=== PATIENT | male | born 1960 | race African-American/Black ===

== ENCOUNTER 2024-09-05 11:50 | Inpatient (IN) | payer MEDICARE, MEDICAID ==
[~2024-09-05] VITALS: Ht 165.1 cm; Wt 52.2 kg
[~2024-09-05 11:50] MED LIST: BENADRYL; RISPERDAL; ZOLOFT
[2024-09-05 11:53] VITALS: O2SAT 98
[2024-09-05] MEDS: ACETAMINOPHEN 650MG/20.3ML UDC PO ONE (16:54)
[2024-09-05 17:39] LABS: BASOPHILS % 0.1 % (0.0-2.0); DIFFERENTIAL COMMENT 0; HEMATOCRIT. 48.1 % (42.0-52.0); LYMPHOCYTES % 7.3 % (20.0-50.0); MEAN CORPUSCULAR HEMOGLOBIN 33.8 pg (28.0-32.0); MEAN CORPUSCULAR HGB CONC 33.3 g/dL (31.0-37.0); MEAN CORPUSCULAR VOLUME 101.5 fL (80.0-94.0); MEAN PLATELET VOLUME 8.8 fl (7.4-10.4); MONOCYTES % 5.7 % (2.0-8.0); NEUTROPHILS % 86.9 % (40.0-76.0); PLATELET 207 x1000/uL (130-400); RED BLOOD CELL COUNT 4.74 mill/uL (4.7-6.1); RED CELL DISTRIBUTION WIDTH 12.5 % (11.6-14.6); WHITE BLOOD COUNT 20.6 x1000/uL (4.5-11.0)
[2024-09-05 17:47] LABS: CHLORIDE 96 mEq/L (98-107); POTASSIUM 4.2 mEq/L (3.5-5.1); SODIUM 135 mEq/L (136-145)
[2024-09-05 17:48] LABS: CALCIUM 9.8 mg/dL (8.7-10.4); CARBON DIOXIDE 30 mEq/L (21-32)
[2024-09-05 17:53] LABS: CREATININE 1.3 mg/dL (0.6-1.3); GLUCOSE 91 mg/dL (70-105); UREA NITROGEN BLOOD 28 mg/dL (9-23)
[2024-09-05 17:55] LABS: ALANINE AMINOTRANSFERASE 20 IU/L (10-49); ALBUMIN 4.2 g/dL (3.2-4.8); ASPARTATE AMINOTRANSFERASE 28 IU/L (<34); BILIRUBIN DIRECT 0.5 mg/dL (<=3.0); BILIRUBIN TOTAL 1.3 mg/dL (0.1-1.0); PROTEIN TOTAL 7.9 g/dL (6.0-8.3); PROTHROMBIN TIME 10.7 sec (9.6-11.0)
[2024-09-05 18:00] LABS: TROPONIN I HIGH SENSITIVITY < 4 ng/L (3.0-53)
[2024-09-05] MEDS: SODIUM CHLORIDE 0.9% 1,000 ML IV ONE (20:34)
[2024-09-05] MEDS: SODIUM CHLORIDE 0.9% (SEPSIS BOLUS) IV ONE (20:34)
[2024-09-05] MEDS: CEFTRIAXONE 1GM/50ML 50 ML IV NR (20:35)
[2024-09-05] MEDS ORDERED: DOCUSATE SODIUM 100MG CAPSULE PO PRN (21:30)
[2024-09-05] MEDS ORDERED: MAGNESIUM/ALUMINUM HYDROXIDE/SIMETHICONE 30ML UDC PO PRN (21:30)
[2024-09-05] MEDS ORDERED: NITROGLYCERIN 0.4MG TABLET SL SL PRN (21:30)
[2024-09-05] MEDS ORDERED: KETOROLAC 15MG/ML VIAL IV PRN (21:30)
[2024-09-05] MEDS ORDERED: ZOLPIDEM TARTRATE 5MG TABLET PO PRN (21:30)
[2024-09-05] MEDS ORDERED: CLONIDINE 0.1MG TABLET PO PRN (21:30)
[2024-09-05] MEDS ORDERED: IPRATROPIUM/ALBUTEROL 0.5-3(2.5)MG/3ML NEB NEB PRN (21:30)
[2024-09-05] MEDS ORDERED: ACETAMINOPHEN 325MG TABLET PO PRN ×2 (21:30)
[2024-09-05] MEDS: AZITHROMYCIN 500MG/250ML 250 ML IV NR (21:31)
[2024-09-05] MEDS: ONDANSETRON HCL 4MG/2ML INJ IV PRN (21:55)
[2024-09-05 22:16] LABS: IRON 31 ug/dL (65-175)
[2024-09-05 22:17] LABS: TRIGLYCERIDE 103 mg/dL (0-150)
[2024-09-05 22:18] LABS: CREATINE KINASE MB FRACTION 1.3 ng/mL (0.5-3.6); LDL CHOLESTEROL 43 mg/dL (5-100)
[2024-09-05 22:19] LABS: CHOLESTEROL 121 mg/dL (<200); HDL CHOLESTEROL 52 mg/dL (>55); TOTAL IRON BINDING CAPACITY 558 ug/dl (250-425)
[2024-09-05 22:20] LABS: CREATINE KINASE 36 IU/L (46-171); TROPONIN I HIGH SENSITIVITY < 4 ng/L (3.0-53)
[2024-09-05 22:21] LABS: THYROID STIMULATING HORMONE 1.03 uIU/mL (0.55-4.78)
[2024-09-05 22:22] LABS: FOLIC ACID (FOLATE) SERUM 10.52 ng/mL (>5.38); VITAMIN B12 SERUM 418 pg/mL (211-911)
[2024-09-05] MEDS: MEROPENEM 1G/100ML 100 ML IV SCH (23:57)
[2024-09-06 00:06] VITALS: BP 129/67; PULSE 69; RESP 19; TEMP 36.2512
[2024-09-06] MEDS: VANCOMYCIN 1.25GM PMX (XELLIA) 250 ML IV NR (01:15)
[2024-09-06 08:00] VITALS: BP 140/90; PULSE 76; RESP 18; TEMP 36.22512; O2SAT 100
[2024-09-06] MEDS: ASCORBIC ACID 500 MG TABLET PO SCH (08:25)
[2024-09-06] MEDS: ASPIRIN 81MG EC TABLET PO SCH (08:25)
[2024-09-06] MEDS: FAMOTIDINE 20MG TABLET PO SCH (08:25)
[2024-09-06] MEDS: ZINC SULFATE 220 MG ( 50 ) CAPSULE PO SCH (08:26)
[2024-09-06] MEDS: ENOXAPARIN 40MG/0.4ML SYR SUBCUT SCH (08:27)
[2024-09-06 09:52] LABS: HEMATOCRIT. 44.6 % (42.0-52.0); HEMOGLOBIN. 14.5 g/dL (14.0-18.0); MEAN CORPUSCULAR HGB CONC 32.5 g/dL (31.0-37.0); MEAN CORPUSCULAR VOLUME 101.4 fL (80.0-94.0); MEAN PLATELET VOLUME 8.9 fl (7.4-10.4); PLATELET 186 x1000/uL (130-400); RED CELL DISTRIBUTION WIDTH 12.7 % (11.6-14.6)
[2024-09-06 10:02] LABS: CHLORIDE 103 mEq/L (98-107); POTASSIUM 4.8 mEq/L (3.5-5.1); SODIUM 138 mEq/L (136-145)
[2024-09-06 10:04] LABS: CARBON DIOXIDE 30 mEq/L (21-32)
[2024-09-06 10:10] LABS: GLUCOSE 92 mg/dL (70-105); TROPONIN I HIGH SENSITIVITY 4 ng/L (3.0-53); UREA NITROGEN BLOOD 23 mg/dL (9-23)
[2024-09-06 10:11] LABS: ALANINE AMINOTRANSFERASE 20 IU/L (10-49); ALBUMIN 3.6 g/dL (3.2-4.8)
[2024-09-06 10:12] LABS: ASPARTATE AMINOTRANSFERASE 33 IU/L (<34); BILIRUBIN TOTAL 1.1 mg/dL (0.1-1.0); PHOSPHORUS 1.7 mg/dL (2.5-4.9); PROTEIN TOTAL 6.9 g/dL (6.0-8.3)
[2024-09-06 10:13] LABS: CREATINE KINASE 36 IU/L (46-171)
[2024-09-06 10:14] LABS: DIFFERENTIAL COMMENT 1
[2024-09-06] MEDS: MEROPENEM 1G/100ML 100 ML IV SCH (11:00)
[2024-09-06 11:17] LABS: CLARITY URINE CLEAR (CLEAR); COLOR URINE DARK YELLOW (YELLOW); GLUCOSE URINE NEGATIVE (NEGATIVE); KETONES URINE NEGATIVE (NEGATIVE); LEUKOCYTE ESTERASE URINE TRACE (NEGATIVE); NITRITE URINE NEGATIVE (NEGATIVE); OCCULT BLOOD URINE NEGATIVE (NEGATIVE); PH URINE 5.5 (4.5-8.0); PROTEIN URINE TRACE (NEGATIVE); SPECIFIC GRAVITY URINE 1.023 (1.005-1.030)
[2024-09-06 12:00] VITALS: BP_SYST 140; BP_DIAS 80; BP_DIAS 86; PULSE 76; RESP 18; RESP 19; TEMP 36.50292; O2SAT 98
[2024-09-06 12:56] LABS: SQUAMOUS EPITHELIAL CELL URINE 1+ /lpf (RARE/1+)
[2024-09-06 12:57] LABS: BACTERIA URINE TRACE; RBC URINE NONE SEEN /hpf (0-2)
[2024-09-06] MEDS: GUAIFENESIN 200MG/10ML SUGAR FREE UDC PO PRN (13:34)
[2024-09-06] MEDS: VANCOMYCIN 500MG PREMIX 100 ML IV SCH (13:39)
[2024-09-06 16:00] VITALS: BP 134/76; PULSE 75; RESP 19; TEMP 36.72516; O2SAT 98
[2024-09-06 16:55] LABS: *AMPHETAMINES SCREEN URINE PRESUMPTIVE POSITIVE (NEGATIVE); *BARBITURATES SCREEN URINE NEGATIVE (NEGATIVE); *BENZODIAZEPINES SCREEN URINE NEGATIVE (NEGATIVE); *COCAINE SCREEN URINE PRESUMPTIVE POSITIVE (NEGATIVE); CANNABINOID URINE SCREEN PRESUMPTIVE POSITIVE (NEGATIVE); ECSTASY MDMA SCREEN URINE NEGATIVE (NEGATIVE); METHADONE URINE SCREEN NEGATIVE (NEGATIVE); OPIATES URINE SCREEN NEGATIVE (NEGATIVE); PHENCYCLIDINE URINE SCREEN NEGATIVE (NEGATIVE)
[2024-09-06 20:00] VITALS: BP 151/74; PULSE 77; RESP 19; TEMP 36.33624; O2SAT 98
[2024-09-06] MEDS: LACTATED RINGERS 1,000 ML IV SCH (20:53)
[2024-09-06 21:31] LABS: PLATELET ESTIMATE NORMAL
[2024-09-06 21:32] LABS: ANISOCYTOSIS 1+
[2024-09-06] MEDS ORDERED: IOHEXOL-350 100 ML BOTTLE ONE (23:21)
[2024-09-07] VITALS: BP 149/73; PULSE 73; RESP 19; TEMP 37.89192; O2SAT 96
[2024-09-07 04:00] VITALS: BP 149/73; PULSE 73; RESP 19; TEMP 37.89192; O2SAT 96
[2024-09-07 08:00] VITALS: BP 140/74; PULSE 75; RESP 18; TEMP 37.16964; O2SAT 98
[2024-09-07 08:40] LABS: BASOPHILS % 0.9 % (0.0-2.0); DIFFERENTIAL COMMENT 0; EOSINOPHILS % 0.5 % (0.0-5.0); HEMATOCRIT. 42.7 % (42.0-52.0); HEMOGLOBIN. 14.2 g/dL (14.0-18.0); LYMPHOCYTES % 12.3 % (20.0-50.0); MEAN CORPUSCULAR HEMOGLOBIN 33.1 pg (28.0-32.0); MEAN CORPUSCULAR HGB CONC 33.2 g/dL (31.0-37.0); MEAN CORPUSCULAR VOLUME 99.9 fL (80.0-94.0); MONOCYTES % 9.6 % (2.0-8.0); NEUTROPHILS % 76.7 % (40.0-76.0); PLATELET 218 x1000/uL (130-400); RED BLOOD CELL COUNT 4.28 mill/uL (4.7-6.1); RED CELL DISTRIBUTION WIDTH 12.4 % (11.6-14.6); WHITE BLOOD COUNT 10.6 x1000/uL (4.5-11.0)
[2024-09-07 08:59] LABS: CHLORIDE 104 mEq/L (98-107); POTASSIUM 3.7 mEq/L (3.5-5.1); SODIUM 138 mEq/L (136-145)
[2024-09-07 09:02] LABS: CARBON DIOXIDE 28 mEq/L (21-32)
[2024-09-07 09:07] LABS: CREATININE 0.8 mg/dL (0.6-1.3); GLUCOSE 95 mg/dL (70-105)
[2024-09-07 09:08] LABS: ALANINE AMINOTRANSFERASE 21 IU/L (10-49); UREA NITROGEN BLOOD 14 mg/dL (9-23)
[2024-09-07 09:09] LABS: ALBUMIN 3.6 g/dL (3.2-4.8); ASPARTATE AMINOTRANSFERASE 32 IU/L (<34)
[2024-09-07 09:10] LABS: PHOSPHORUS 2.4 mg/dL (2.5-4.9); PROTEIN TOTAL 6.4 g/dL (6.0-8.3)
[2024-09-07] MEDS ORDERED: MEROPENEM 1G/100ML 100 ML IV SCH (12:00)
== END 2024-09-07 10:30 | disposition left against medical advice (07) | DRG 720 ==
LOC: ER 11:50 → 8WST 20:14 → EDBEDREQTM 20:23 → EDBEDREQ 20:23
PROVIDERS: ADMIT Internal Medicine; ATTEND Internal Medicine
DX: A41.9 Sepsis, unspecified organism (principal); J18.9 Pneumonia, unspecified organism; E87.1 Hypo-osmolality and hyponatremia; R65.20 Severe sepsis without septic shock; Z20.822 Contact with and (suspected) exposure to COVID-19; B34.9 Viral infection, unspecified; F19.10 Other psychoactive substance abuse, uncomplicated; Z53.29 Procedure and treatment not carried out because of patient's decision for other reasons
CPT/HCPCS: 36415; 71045; 71275; 80048; 80053; 80061; 80076; 80305; 81003; 82550; 82553; 82607; 82746; 83036; 83540; 83550; 83605; 83735; 83880; 84100; 84145; 84439; 84443; 84484; 85025; 87340; 87426; 93005; 93306; 93970; 99291; J0456; J0696; J1650; J1885; J2185; J2405; J3370; J7030; J7120; Q9967